=== PATIENT | female | born 1940 | race Two or more races ===

== ENCOUNTER 2017-12-13 05:33 | Day surgery (SDC) | payer OTHER ==
[~2017-12-13] VITALS: Ht 167.6 cm; Wt 80.0 kg
[2017-12-13 06:40] VITALS: BP 169/92; PULSE 74; RESP 20; TEMP 98.2; O2SAT 98
[2017-12-13] MEDS ORDERED: ceFAZolin 2 GM PREMIX 50 ML - implanted port/tunneled catheter insertion IV SCH (06:45)
[2017-12-13] MEDS ORDERED: VANCOMYCIN 1000 MG/NS 250 ML - implanted port/tunneled catheter IV SCH ×2 (06:45)
[2017-12-13] MEDS ORDERED: SODIUM CHLORIDE 0.9% 1000 ML IV SCH (06:45)
[2017-12-13] MEDS ORDERED: SYNT25TA PO (07:12)
[2017-12-13] MEDS ORDERED: [UNRECOGNIZED DRUG - OTHER] (07:12)
[2017-12-13 07:14] LABS: AUTOMATED NEUTROPHIL # 5.2 TH/MM3 (1.8-7.7); BASOPHIL # 0.1 TH/MM3 (0-0.2); EOSINOPHIL # 0.2 TH/MM3 (0-0.4); EOSINOPHIL % 2.9 % (0.0-4.0); HEMATOCRIT 36.2 % (35.0-46.0); HEMOGLOBIN 12.1 GM/DL (11.6-15.3); LYMPH % 20.3 % (9.0-44.0); LYMPHOCYTE # 1.6 TH/MM3 (1.0-4.8); MEAN CELL VOLUME 92.6 FL (80.0-100.0); MEAN CORPUSCULAR HGB CONC 33.5 % (32.0-36.0); MEAN PLATELET VOLUME 8.4 FL (7.0-11.0); MONO % 10.1 % (0.0-8.0); MONOCYTE # 0.8 TH/MM3 (0-0.9); NEUT % 65.7 % (16.0-70.0); PLATELET COUNT 198 TH/MM3 (150-450); RED BLOOD COUNT 3.91 MIL/MM3 (4.00-5.30); RED CELL DISTRIBUTION WIDTH 14.2 % (11.6-17.2); WHITE BLOOD COUNT 7.9 TH/MM3 (4.0-11.0)
[2017-12-13 07:23] LABS: PROTHROMBIN TIME - PATIENT 10.2 SEC (9.8-11.6)
[2017-12-13] MEDS ORDERED: MIDAZOLAM HCL 2 MG/2 ML VIAL ONE (07:48)
[2017-12-13] MEDS ORDERED: fentaNYL CITRATE 250 MCG/5 ML AMP ONE (07:49)
--- NOTE | 2017-12-13 08:48 | PD.RAD ---
Post Procedure Progress Note Pre Procedure Diagnosis: (1) Lung cancer Post Procedure Diagnosis: (1) Lung cancer Procedure Date: Dec 13, 2017 Supervising Radiologist: Jac Sierra Estimated blood loss: 3cc Anesthesia: Local, Conscious Sedation Plan of Activity Patient to Unit: [facility] Patient Condition: Fair Additional Comments: Port placed via the right IJ catheter in good position OK for use. Full dictated report to follow. See PACS Report for procedural detail/treatment Jac Sierra MD Dec 13, 2017 08:48
[2017-12-13 09:00] VITALS: BP 153/81; PULSE 65; RESP 16; TEMP 97.5; O2SAT 96
[2017-12-13] MEDS ORDERED: SODIUM CHLORIDE 0.9% FLUSH 10 ML FLUSH IVF PRN (09:00)
--- NOTE | 2017-12-13 09:13 | RADRPT ---
EXAM DATE/TIME: 12/13/2017 08:23 [place] COMPARISON: No previous studies available for comparison. INDICATIONS : Patient presents with lung cancer in need of port placement. MEDICAL HISTORY : Adenocarcinoma of Right lung Anemia Arthritis Bleeding problems Breast cancer Diverticulosis Gout Hemorrhoids Hypertension Hypothyroidism Kidney Stones SURGICAL HISTORY : Bilateral mastectomy Pulmonary nodule biopsy Tubal ligation Colonoscopy 2017 Knee surgery Right 1993 Hysterectomy, Partial 1969 ENCOUNTER: Initial ACUITY: 3 weeks PAIN SCORE: 6/10 LOCATION: Right Clavicle, and left hip FLUORO TIME: 0.3 minutes IMAGE SERIES: 1 SEDATION TIME: 30 minutes ACCESS: Right internal jugular vein SEDATION: 1.) 2 mg midazolam (Versed) IV 2.) 100 mcg fentanyl (Sublimaze) IV Prophylactic antibiotics were administered with appropriate pre-procedure timing. Vancomycin within 2 hours of procedure, Ancef (or alternative) within 1 hour of procedure. DEVICE: 1. 8 Azeri single lumen cm Bard Power Port PROCEDURE : 1. Continuous pulse oximetry and EKG monitoring. 2. Intravenous conscious sedation. 3. Ultrasound guidance for venous access. 4. Fluoroscopic guided implantable central venous port placement. The patient was placed supine. The neck was prepped in sterile fashion. Full sterile technique was u sed, including cap, mask, sterile gloves and gown, and a large sterile sheet. Hand hygiene and 2% ch lorhexidine Betadine was utilized per protocol for cutaneous antisepsis with appropriate dry time for site. Sterile gel and sterile probe cover were utilized for ultrasound guidance. The skin and sub cutaneous tissues were infiltrated with local anesthetic solution. Under direct ultrasound guidance, the right internal jugular vein was accessed. The ultrasound image s depicting access guidance were stored and saved to PACS for permanent record. A subcutaneous pocke t was created using blunt dissection. The port was introduced to the pocket. The catheter tubing wa s fed through a subcutaneous tunnel to the venotomy site. The catheter tubing was cut to a suitable length and then was introduced through a valved Peel-Away sheath and positioned with catheter tubing tip at the cavo-atrial junction level. The pocket incision was closed with subcuticular Vicryl sutur e. Steri-Strips were applied. The port was flushed and locked with heparin solution per protocol. Sterile dressing was applied to the site. The patient tolerated the procedure well. Conscious sedation was performed with the prescribed dosages and duration as above in the presence of an independent trained radiology nurse to assist in the monitoring of the patient. EKG and oximetry remained stable throughout the procedure. The patient tolerated the procedure well and there were no complications. The patient was sent to post anesthesia recovery in stable condition. CONCLUSION: Uncomplicated ultrasound and fluoroscopic guided implanted central venous port catheter placement as described in detail above. An 8 Azeri Power port was placed. Jac Sierra MD on December 13, 2017 at 9:09 Board Certified Radiologist. This report was verified electronically.
[2017-12-13 09:15] VITALS: BP 140/85; PULSE 64; RESP 20; O2SAT 95
[2017-12-13 09:45] VITALS: BP 151/80; PULSE 66; RESP 20; O2SAT 99
[2017-12-13 10:15] VITALS: BP 159/87; PULSE 64; RESP 20; O2SAT 99
[2017-12-13 10:45] VITALS: BP 158/81; PULSE 65; RESP 20; O2SAT 98
== END 2017-12-13 14:30 | disposition home or self-care (01) ==
LOC: HRIP 05:33 → HROP 05:33
PROVIDERS: ATTEND Internal Medicine
DX: C34.91 Malignant neoplasm of unspecified part of right bronchus or lung (principal); E03.9 Hypothyroidism, unspecified; I10 Essential (primary) hypertension; M10.9 Gout, unspecified; D64.9 Anemia, unspecified; K92.2 Gastrointestinal hemorrhage, unspecified; C78.7 Secondary malignant neoplasm of liver and intrahepatic bile duct; C79.51 Secondary malignant neoplasm of bone; N20.0 Calculus of kidney; Z85.3 Personal history of malignant neoplasm of breast; Z01.818 Encounter for other preprocedural examination
CPT/HCPCS: 36561; 76937; 77001; 85025; 85610; 85730; 99152; 99153; C1788; J0690; J1642; J2250; J3010; J3370; J7050